=== PATIENT | female | born 1970 | race Caucasian/White ===

== ENCOUNTER 2016-09-17 09:58 | Emergency (ER) | payer SELFPAY ==
[2016-09-17 10:19] VITALS: BP 130/78
== END 2016-09-17 12:49 | disposition left against medical advice (07) ==
LOC: ED 09:58
DX: Z53.21 Procedure and treatment not carried out due to patient leaving prior to being seen by health care provider (principal)
CPT/HCPCS: 82962

== ENCOUNTER 2016-10-24 20:17 | Emergency (ER) | payer MEDICAID ==
[2016-10-24 23:57] LABS: BASOPHIL % 0.4 % (0-2); PLATELET COUNT 359 x10^3mcL (130-400); RED CELL DISTRIBUTION WIDTH 14.2 % (11.5-14.5)
[2016-10-25 00:06] LABS: CARBON DIOXIDE 29.2 mmol/L (21-32); CHLORIDE SERUM 99 mmol/L (98-107); CREATININE SERUM 0.7 mg/dL (0.6-1.0); GFR1 > 60 mL/min; GLUCOSE SERUM 116 mg/dL (74-106); POTASSIUM SERUM 4.2 mmol/L (3.5-5.1); SODIUM SERUM 138 mmol/L (136-145)
[2016-10-25 00:10] LABS: ALBUMIN 3.7 g/dL (3.4-5.0); ALKALINE PHOSPHATASE 89 U/L (46-116); ALT/SGPT 89 U/L (14-59); AMYLASE 65 U/L (25-115); AST/SGOT 42 U/L (15-37); BILIRUBIN TOTAL 0.2 mg/dL (0.20-1.00); LIPASE 155 IU/L (73-393); TOTAL PROTEIN, SERUM 7.7 g/dL (6.4-8.2)
[2016-10-25 00:37] LABS: microscopic required? YES; urine erythrocyte TRACE (NEGATIVE)
[2016-10-25 03:30] VITALS: BP 125/87
== END 2016-10-25 03:30 | disposition home or self-care (01) ==
LOC: ED 20:17
PROVIDERS: Emergency Medicine
DX: R10.33 Periumbilical pain (principal); R10.12 Left upper quadrant pain; N39.0 Urinary tract infection, site not specified; E11.9 Type 2 diabetes mellitus without complications; Z79.4 Long term (current) use of insulin

== ENCOUNTER 2017-03-08 22:08 | Emergency (ER) | payer MEDICAID ==
[~2017-03-08] VITALS: Ht 162.6 cm; Wt 81.6 kg
[2017-03-08 23:53] LABS: BASOPHIL % 0.5 % (0-2); PLATELET COUNT 335 x10^3mcL (130-400)
[2017-03-08 23:54] LABS: RED CELL DISTRIBUTION WIDTH 15.3 % (11.5-14.5)
[2017-03-08 23:55] LABS: CALCIUM 8.4 mg/dL (8.5-10.1); CHLORIDE SERUM 101 mmol/L (98-107); CREATININE SERUM 0.9 mg/dL (0.6-1.0); GFR1 > 60 mL/min; GLUCOSE SERUM 199 mg/dL (74-106); POTASSIUM SERUM 3.8 mmol/L (3.5-5.1); SODIUM SERUM 136 mmol/L (136-145)
[2017-03-09 00:16] LABS: ALKALINE PHOSPHATASE 76 U/L (46-116); ALT/SGPT 61 U/L (14-59); AST/SGOT 41 U/L (15-37); BILIRUBIN TOTAL 0.1 mg/dL (0.20-1.00); LIPASE 155 IU/L (73-393); TOTAL PROTEIN, SERUM 7.4 g/dL (6.4-8.2)
[2017-03-09 00:17] LABS: ALBUMIN 3.3 g/dL (3.4-5.0)
[2017-03-09 01:53] VITALS: BP 113/74
== END 2017-03-09 01:53 | disposition home or self-care (01) ==
LOC: ED 22:08
PROVIDERS: Emergency Medicine
DX: R10.9 Unspecified abdominal pain (principal); M54.9 Dorsalgia, unspecified; K64.4 Residual hemorrhoidal skin tags; R11.0 Nausea; R19.7 Diarrhea, unspecified; E11.9 Type 2 diabetes mellitus without complications; Z79.84 Long term (current) use of oral hypoglycemic drugs; Z79.4 Long term (current) use of insulin
CPT/HCPCS: 36415; J3010; Q0162

== ENCOUNTER 2017-06-26 02:22 | Emergency (ER) | payer MEDICAID ==
[~2017-06-26] VITALS: Ht 160 cm; Wt 84.4 kg
[2017-06-26 02:32] VITALS: Ht 160 cm; Wt 84.4 kg
[2017-06-26 04:06] VITALS: BP 136/75
== END 2017-06-26 04:06 | disposition home or self-care (01) ==
LOC: ED 02:22
DX: M62.830 Muscle spasm of back (principal); G89.29 Other chronic pain; M54.2 Cervicalgia; E11.9 Type 2 diabetes mellitus without complications; Z87.39 Personal history of other diseases of the musculoskeletal system and connective tissue
CPT/HCPCS: J2001

== ENCOUNTER 2017-08-26 17:43 | Emergency (ER) | payer MEDICAID ==
[~2017-08-26] VITALS: Ht 160 cm; Wt 86.2 kg
[2017-08-26 17:55] VITALS: BP 137/80; Ht 160 cm; Wt 86.2 kg
== END 2017-08-26 18:50 | disposition home or self-care (01) ==
LOC: ED 17:43
DX: S83.92XA Sprain of unspecified site of left knee, initial encounter (principal); G89.29 Other chronic pain; M54.2 Cervicalgia; M25.512 Pain in left shoulder; M25.552 Pain in left hip; E11.9 Type 2 diabetes mellitus without complications; X50.1XXA Overexertion from prolonged static or awkward postures, initial encounter; Y93.89 Activity, other specified; Y99.8 Other external cause status; Y92.89 Other specified places as the place of occurrence of the external cause
CPT/HCPCS: Q0092